=== PATIENT | male | born 1955 | race Caucasian/White ===

== ENCOUNTER 2023-06-10 17:36 | Emergency (ER) | payer OTHER, SELFPAY ==
[2023-06-10 17:44] VITALS: BP 177/98; PULSE 80; RESP 20; TEMP 37; O2SAT 99
--- NOTE | 2023-06-10 17:44 | ED.URI ---
HPI - URI/Sore Throat General Chief Complaint: Upper Respiratory Infection Stated Complaint: cough/congestion Time Seen by Provider: 06/10/23 17:53 Source: patient and RN notes reviewed Mode of arrival: ambulatory Limitations: no limitations History of Present Illness HPI Narrative: 67-year-old male presents with concern for 1 day history of cough, sinus congestion drainage. Reports he took Mucinex only mild relief of his cough. He denies fever, body aches, chills, sweats, headache, sweats stomach, sore throat. MD elicited complaint: cough and sore throat Related Data Home Medications Medication Instructions Recorded Confirmed atorvastatin 20 mg tablet mg 06/10/23 fluticasone propionate 50 intranasal 06/10/23 mcg/actuation nasal spray,suspension montelukast 10 mg tablet mg 06/10/23 tamsulosin 0.4 mg capsule mg PO 06/10/23 Allergies Allergy/AdvReac Type Severity Reaction Status Date / Time No Known Allergies Allergy Verified 06/10/23 17:47 Review of Systems Review of Systems: CONSTITUTIONAL: Denies malaise, chills, sweats, or fever. EYES: Denies visual changes, redness, or discharge. ENT: Reports rhinorrhea, congestion. Denies sinus pain, otalgia and sore throat. CARDIOVASCULAR: Denies chest pain, palpitations, or edema. RESPIRATORY: Reports cough. Denies dyspnea. GASTROINTESTINAL: Denies abdominal pain, nausea, vomiting, diarrhea SKIN: Denies rash or itching. MUSCULOSKELETAL: Denies myalgia. NEUROLOGIC: Denies headache. All systems reviewed & are unremarkable except as noted in HPI and below PMFSH Comments At time of signature, agree with nursing past medical, surgical, social and family history. There is no relevant family history pertinent to the presenting complaint Exam Narrative: GENERAL: Well-appearing, well-nourished, and in no acute distress. HEAD: Normocephalic EYES: PERRLA, conjunctivae clear ENT: Nares clear, clear discharge. Mucous membranes moist. TM pearly gandhi with dull light reflex bilaterally; no tragal tenderness. Oropharynx not erythematous without lesions. Tonsils not enlarged and without exudate, no drooling, no hoarseness, no trismus, uvula midline. NECK: Supple. No lymphadenopathy CHEST: Clear to auscultation, breath sounds equal. No wheezing, rhonchi, rales, or stridor. No respiratory distress, speaks in full sentences. HEART: Regular rate and rhythm. No murmur heard. SKIN: Warm, dry, no rash. NEURO: Alert and oriented x3. PSYCH: Normal mood and affect Course Course Emergency Course: Patient is aware of diagnosis, understands and agrees to treatment plan. Anticipatory guidance given. Patient agrees to follow-up as directed and is aware of reasons to seek care at the emergency department. Portions of this record may have been created with voice recognition software Level of Care: Express Care Visit Vital Signs Vital signs: Reviewed. MDM - URI/Sore Throat MDM Narrative Medical decision making narrative: Differential diagnosis considered: Sanchez virus, strep pharyngitis, allergic rhinitis, upper respiratory tract infection, sinusitis, rhinosinusitis, nasopharyngitis. viral pharyngitis, otitis media, otitis externa, pneumonia, bronchitis, viral cough syndrome, viral syndrome, and influenza. Exam findings show no acute concerns or changes; patient is non-toxic appearing and is in no distress. Patient is appropriate for outpatient treatment and follow-up. Lab Data Attestation: I reviewed the patient's lab results. Critical Care Time Critical Care Time Critical Care Time: No Discharge Plan Discharge Clinical Impression: Upper respiratory infection Patient Disposition: Home, Self-Care Condition: Stable Instructions: Upper Respiratory Infection (ED) Additional Instructions: Viral illness may last between 7-21 days; antibiotics do not cure viral illness and are NOT recommended at this time. Recommend antihistamine such as Benadryl at night time an
[2023-06-10 17:48] VITALS: BP 177/98; PULSE 80; RESP 20; TEMP 37; O2SAT 99
== END 2023-06-10 18:10 | disposition home or self-care (01) ==
PROVIDERS: Emergency Provider Nurse Practitioner
DX: J06.9 Acute upper respiratory infection, unspecified (principal); E78.00 Pure hypercholesterolemia, unspecified
CPT/HCPCS: 99213; G0463

== ENCOUNTER 2023-09-15 18:31 | Emergency (ER) | payer OTHER, SELFPAY ==
[2023-09-15 18:45] VITALS: BP 156/87; PULSE 66; RESP 20; TEMP 37.1; O2SAT 100
[2023-09-15 18:48] VITALS: BP 156/87; PULSE 66; RESP 20; TEMP 37.1; O2SAT 100
--- NOTE | 2023-09-15 19:26 | ED.URI ---
HPI - URI/Sore Throat General Chief Complaint: Upper Respiratory Infection Stated Complaint: Congestion/Cough Time Seen by Provider: 09/15/23 19:26 Source: patient, RN notes reviewed and old records reviewed Mode of arrival: ambulatory Limitations: no limitations History of Present Illness HPI Narrative: 67-year-old male to [facility] for complaint bilateral ear fullness nasal congestion with yellow discharge for 2 days. Patient endorses using the Afrin at home with some improvement. Patient denies fever, allergies, pertinent medical history. Patient able to tolerate fluids by mouth. Patient no acute distress. Related Data Home Medications Medication Instructions Recorded Confirmed atorvastatin 20 mg tablet 20 mg PO DAILY 06/10/23 09/15/23 fluticasone propionate 50 1 spray intranasal DAILY 06/10/23 mcg/actuation nasal spray,suspension montelukast 10 mg tablet 10 mg PO DAILY 06/10/23 09/15/23 tamsulosin 0.4 mg capsule 0.4 mg PO DAILY 06/10/23 09/15/23 Allergies Allergy/AdvReac Type Severity Reaction Status Date / Time No Known Allergies Allergy Verified 06/10/23 17:47 Review of Systems Review of Systems: All systems reviewed & are unremarkable except as noted in HPI and below Constitutional: Constitutional: Reports as per HPI, Denies body ache(s), Denies chills and Denies fever(s) Eyes: Eyes: Reports no additional eye complaints ENT: Reports as per HPI, Reports otalgia ( Bilateral ear fullness per patient), Denies headache(s), Reports nasal congestion, Reports nasal discharge ( yellow per patient) and Denies sore throat Cardiovascular: Cardiovascular: Reports no additional cardiovascular complaints, Denies chest pain and Denies dyspnea Respiratory: Respiratory: Reports no additional respiratory complaints, Denies cough and Denies dyspnea Musculoskeletal: Musculoskeletal: Reports no additional musculoskeletal complaints Neurologic: Reports system reviewed and no additional complaints, except as documented Psychiatric: Psychiatric: Reports no additional psychiatric complaints PMFSH Comments At the time of my signature, I reviewed and agree with the nursing past medical, surgical, social, and family history. There is no relevant family history pertinent to the patient complaint. Exam Const: General: cooperative, healthy appearing, comfortable, no acute distress, alert and well nourished Nutritional Appearance: well nourished Orientation/consciousness: patient oriented x3 Limitations: no limitations HENMT: Head: normal to inspection Ears: external ears normal and TM abnormal erythematous on the right and diffuse and with fluid behind the TM on the right Face/Nose/Sinus: Normal external nose present, Normal nares present, normal facial exam, No erythema and No edema Face and sinus: normal facial exam, no erythema and no edema Mouth: Yes Normal oral and palatal mucosa present Throat: posterior oropharynx abnormal erythema and postnasal drainage Eyes: General: appearance normal, both eyes and all related structures Neck: Neck: normal visual inspection, full ROM and no meningeal signs Lymphatic: no lymphadenopathy noted and no lymphedema noted Chest: Chest palpation & inspection: normal inspection of the chest Resp: Effort & Inspection: normal respiratory effort and able to speak in complete sentences Auscultation: clear to auscultation bilaterally Cardio: Jugular venous distension: no JVD Rate: regular rate Rhythm: regular rhythm Back/Spine/Pelvis: Cervical Spine: cervical ROM normal Skin: General skin exam: normal color, no rashes or lesions noted and turgor normal Neuro: General: patient oriented x3, gait normal, moves all extremities and no meningeal signs Speech: normal speech Gait exam (Neuro): Normal gait present Extrem: General: normal to inspection, full ROM and capillary refill normal Psych: Appearance: grossly normal and well kempt Course Course Emergency Course: Some
== END 2023-09-15 19:42 | disposition home or self-care (01) ==
PROVIDERS: Emergency Provider Nurse Practitioner Family
DX: H66.91 Otitis media, unspecified, right ear (principal)
CPT/HCPCS: 99213; G0463